=== PATIENT | male | born 1995 | race American Indian/Alaskan Native ===

== ENCOUNTER 2021-04-07 14:44 | Emergency (ER) | payer SELFPAY ==
[2021-04-07] MEDS ORDERED: SULFAMETHOXAZOLE/TRIMETHOPRIM 800/160MG DS TAB PO ONE (15:13)
--- NOTE | 2021-04-07 15:14 | Emergency Department Report ---
ED Rash HPI - HPI Chief Complaint: Skin/Abscess/Foreign Body Stated Complaint: FOOT/ANKLE INFLAMED Time Seen by Provider: 04/07/21 15:11 Location: Lower Extremities Suspected Cause: Other Rash Symptoms: Yes Peeling, Yes Blistering, No Itching, No Facial Swelling, No Tongue/Oral Swelling, No Breathing Difficulties, No Choking Sensation, No Wheezing/Dyspnea, No Fever, No Lightheaded, No Malaise, No Myalgias Severity: moderate Other History: 25 YO WITH HX ECZEMA COMES TO ER WITH RASH ON HIS FEET. HE WEARS STEEL TOE BOOTS AT WORK AND THIS IS MAKING IS A/C ECZEMA WORSE. WOUNDS IN VARIOUS STAGES OF HEALING. WEEPY. NO PURULENT DRAINAGE. NO FEVER OR CHILLS ED Review of Systems ROS: Stated complaint: FOOT/ANKLE INFLAMED Other details as noted in HPI Comment: All other systems reviewed and negative ED Past Medical Hx - Past Medical History Previous Medical History?: Yes Additional medical history: ECZEMA - Surgical History Past Surgical History?: No - Family History Family history: no significant - Social History Smoking Status: Never Smoker Substance Use Type: None - Medications Home Medications: Home Medications Medication Instructions Recorded Confirmed Last Taken Type Silver Sulfadiazine [Ssd] 400 gm TP BID #1 each 04/07/21 Unknown Rx cephALEXin [Keflex] 500 mg PO Q12HR #20 cap 04/07/21 Unknown Rx Rash Exam - Exam General: Vital signs noted. No distress. Alert and acting appropriately. HEENT: No Periorbital Edema, No Conjuctival Injection, No Chemosis, No Perioral Edema, No Tongue Edema, No Uvular Edema, No Compromised Airway, No Drooling Lungs: Yes Good Air Exchange (Normal Breath Sounds), No Wheezes, No Ronchi, No Stridor, No Cough, No Labored Respirations, No Retractions, No Use of Accessory Muscles, No Other Abnormal Lung Sounds Heart: Yes Regular, No Murmur Skin: Yes Weeping, Yes Erythema, Yes Edema, Yes Encrustations Other: Positive: Abdomen Normal, Neurologic Normal, Musculoskeletal Normal ED Course Vital Signs 04/07/21 15:06 Temperature 98.3 F Pulse Rate 99 H Respiratory 16 Rate Blood Pressure 142/78 [Left] O2 Sat by Pulse 97 Oximetry ED Medical Decision Making - Medical Decision Making WOUND CARE PROVIDED AND INSTRUCTED TDAP UTD DC HOME WITH WOUND ARE, RX AND FOLLOW UP. PT VERBALIZES UNDERSTANDING OF PLAN OF CARE. Vital Signs 04/07/21 15:06 Temperature 98.3 F Pulse Rate 99 H Respiratory 16 Rate Blood Pressure 142/78 [Left] O2 Sat by Pulse 97 Oximetry PT IS AMBULATORY NON TOXIC AND TAKING PO ON DC - Differential Diagnosis A/C ECZEMA Critical care attestation.: If time is entered above; I have spent that time in minutes in the direct care of this critically ill patient, excluding procedure time. ED Disposition Clinical Impression: Eczema, Soft tissue infection Disposition: HOME / SELF CARE / HOMELESS Is pt being admited?: No Does the pt Need Aspirin: No Condition: Stable Instructions: Eczema Additional Instructions: MEDS ORDERED TODAY WOUND CARE TWICE PER DAY - WASH, DRY WELL, APPLY CREAM AND DRESS WITH GUAZE KEEP FEET OPEN TO AIR WHEN NOT AT WORK MOTRIN OR TYLENOL FOR PAIN FOLLOW UP WITH PCP NEXT WEEK TO BE SURE YOU ARE GETTING BETTER REFERRAL BELOW Prescriptions: cephALEXin [Keflex] 500 mg PO Q12HR #20 cap Silver Sulfadiazine [Ssd] 400 gm TP BID #1 each Referrals: WILL HENDRICKS MD [Staff Physician] - 3-5 Days Forms: Work/School Release Form(ED) Time of Disposition: 15:23
[2021-04-07] MEDS ORDERED: SODIUM CHLORIDE 0.9% IRR 500 ML BOTTLE IR ONE (15:30)
[2021-04-07 15:52] VITALS: BP 131/75
== END 2021-04-07 15:53 | disposition home or self-care (01) ==
LOC: ED 14:44
DX: L30.9 Dermatitis, unspecified (principal); L08.9 Local infection of the skin and subcutaneous tissue, unspecified; Z79.899 Other long term (current) drug therapy
CPT/HCPCS: 99283